=== PATIENT | male | born 1990 | race Caucasian/White ===

== ENCOUNTER 2017-05-09 15:41 | Emergency (ER) | payer MEDICARE, MEDICAID ==
[~2017-05-09] VITALS: Ht 180.3 cm; Wt 90.6 kg
[~2017-05-09 15:41] MED LIST: ALBU8.5H4 IH; ALBU8HFA PO; ARIP5TAB4 PO; BUPR150T8 PO; CLON-528 PO; CLON2TAB PO; CYCL-1 PO; DIAZ5TAB PO; DICL100G15 TOP; HYDR50CA PO; LEVA15HF4 IH; LIT300C PO; ONDA4TAB6 PO; ONDA8TAB9 PO; OXYC-145 PO; PARO-62 PO; PRAZ2CAP2 PO; PRAZ5CAP2 PO; PRED50TA PO; ZOF4T PO
[2017-05-09 15:53] VITALS: BP 141/101
[2017-05-09] MEDS ORDERED: ibuprofen tablet 400 MG TABLET PO ONE (16:20)
[2017-05-09] MEDS ORDERED: IBUP-1985 PO (16:20)
[2017-05-09] MEDS ORDERED: acetaminophen 325mg tablet PO ONE (16:25)
== END 2017-05-09 16:47 | disposition home or self-care (01) ==
LOC: ER 15:41
DX: S60.221A Contusion of right hand, initial encounter (principal); F12.10 Cannabis abuse, uncomplicated; I10 Essential (primary) hypertension; J45.909 Unspecified asthma, uncomplicated; G89.29 Other chronic pain; Z98.890 Other specified postprocedural states; Z79.899 Other long term (current) drug therapy; Z88.6 Allergy status to analgesic agent; Z88.5 Allergy status to narcotic agent; W22.8XXA Striking against or struck by other objects, initial encounter; Y93.89 Activity, other specified; Y92.89 Other specified places as the place of occurrence of the external cause; Y99.9 Unspecified external cause status
CPT/HCPCS: 29125; 73130; 99284

== ENCOUNTER 2017-07-21 22:13 | Emergency (ER) | payer MEDICARE, MEDICAID ==
[~2017-07-21] VITALS: Ht 177.8 cm; Wt 86.5 kg
[~2017-07-21 22:13] MED LIST changes: +IBUP-1985 PO
[2017-07-21] MEDS ORDERED: ondansetron 4mg rapidly disintigrating tab PO ONE (23:00)
[2017-07-21] MEDS ORDERED: dicyclomine 10 MG capsule PO ONE (23:00)
[2017-07-21 23:03] LABS: BASOPHILS % (AUTO) 0.3 % (0-1); EOSINOPHILS # (AUTO) 0.3 X10'3 (0-0.9); EOSINOPHILS % (AUTO) 2.4 % (0-6); HEMATOCRIT 46.4 % (42.0-52.0); HEMOGLOBIN 15.6 g/dl (14.0-17.9); LYMPHOCYTES # (AUTO) 4.5 X10'3 (1.1-4.8); LYMPHOCYTES % (AUTO) 40.2 % (21-51); MEAN CORPUSCULAR HEMOGLOBIN 30.1 PG (27.0-31.0); MEAN CORPUSCULAR HGB CONC 33.7 % (33.0-36.5); MEAN CORPUSCULAR VOLUME 89.3 FL (78-98); MEAN PLATELET VOLUME 8.2 FL (7.4-10.4); MONOCYTES # (AUTO) 0.6 X10'3 (0-0.9); MONOCYTES % (AUTO) 5.2 % (2-12); NEUTROPHILS # (AUTO) 5.9 X10'3 (1.8-7.7); NEUTROPHILS % (AUTO) 51.9 % (42-75); PLATELET COUNT 317 X10'3 (140-440); RED BLOOD COUNT 5.19 X10'6 (4.70-6.10); RED CELL DISTRIBUTION WIDTH 14.2 % (11.5-14.5); WHITE BLOOD COUNT 11.3 X10'3 (4.5-11.0)
[2017-07-21 23:14] LABS: INR 1.1 INR; PROTHROMBIN TIME 11.1 SECONDS (9.0-12.0)
[2017-07-21 23:17] LABS: ALANINE AMINOTRANSFERASE 31 U/L (12-78); ALBUMIN 4.5 G/DL (3.4-5.0); ALBUMIN/GLOBULIN RATIO 1.5 (1.1-1.5); ALKALINE PHOSPHATASE 63 IU/L (46-116); AMYLASE 34 U/L (25-115); ANION GAP 8 (8-16); ASPARTATE AMINO TRANSFERASE 19 U/L (10-37); BILIRUBIN,TOTAL 0.6 MG/DL (0.1-1.0); BLOOD UREA NITROGEN 12 MG/DL (7-18); BUN/CREATININE RATIO 10.6 (5.4-32.0); CALCIUM 9.2 MG/DL (8.5-10.1); CHLORIDE 105 MMOL/L (99-107); CREATININE 1.13 MG/DL (0.60-1.10); GLUCOSE 95 MG/DL (70-104); LIPASE 103 U/L (73-393); POTASSIUM 3.9 MMOL/L (3.5-5.1); SODIUM 144 MMOL/L (135-145); TOTAL CARBON DIOXIDE 30.8 MMOL/L (24-32); TOTAL PROTEIN 7.6 G/DL (6.4-8.2); eGFR 78 ML/MIN
[2017-07-21 23:42] LABS: CLARITY,URINE CLEAR (Clear); COLOR,URINE YELLOW (Yellow); GLUCOSE, URINE NEGATIVE (Neg); KETONES,URINE NEGATIVE (Neg); LEUKOCYTE ESTERASE ,URINE NEGATIVE (Neg); NITRITES, URINE NEGATIVE (Neg); OCCULT BLOOD,URINE NEGATIVE (Neg); PH,URINE 5.5 (4.8-8.0); PROTEIN,URINE TRACE mg/dl (Neg); UROBILINOGEN,URINE 0.2 E.U/dL (0.2-1.0)
[2017-07-21 23:46] LABS: UA COLLECTION TYPE CLN CATCH MIDSTREAM
[2017-07-21 23:48] LABS: BACTERIA,URINE NONE SEEN /HPF (Neg); CAL OXALATE CRYSTALS 4+ /HPF (NEGATIVE); MUCUS STRANDS MANY /LPF (Neg); RBC,URINE NONE SEEN /HPF (0-2); SQUAMOUS EPITHELIAL CELL,UR NONE SEEN /LPF (FEW); WBC,URINE NONE SEEN /HPF (0-4)
[2017-07-21] MEDS ORDERED: DICY20TA11 PO (23:54)
[2017-07-22 00:08] VITALS: BP 124/72
== END 2017-07-22 00:16 | disposition home or self-care (01) ==
LOC: ER 22:13
DX: R10.32 Left lower quadrant pain (principal); I10 Essential (primary) hypertension; J45.909 Unspecified asthma, uncomplicated; G89.29 Other chronic pain; F12.10 Cannabis abuse, uncomplicated; Z56.0 Unemployment, unspecified; Z79.899 Other long term (current) drug therapy
CPT/HCPCS: 36415; 80053; 81001; 82150; 83690; 85025; 85610; 85651; 99284

== ENCOUNTER 2018-07-27 08:44 | Emergency (ER) | payer MEDICARE, MEDICAID ==
[~2018-07-27] VITALS: Ht 180.3 cm; Wt 100.0 kg
[~2018-07-27 08:44] MED LIST changes: +DICY20TA11 PO
[2018-07-27 09:29] VITALS: BP 165/118
[2018-07-27] MEDS ORDERED: CYCL-1 PO (09:45)
== END 2018-07-27 10:03 | disposition home or self-care (01) ==
LOC: ER 08:44
DX: R25.2 Cramp and spasm (principal); M26.603 Bilateral temporomandibular joint disorder, unspecified; I10 Essential (primary) hypertension; J45.909 Unspecified asthma, uncomplicated; G89.29 Other chronic pain; F12.90 Cannabis use, unspecified, uncomplicated; F11.90 Opioid use, unspecified, uncomplicated; Z88.5 Allergy status to narcotic agent; Z88.6 Allergy status to analgesic agent; Z88.8 Allergy status to other drugs, medicaments and biological substances; Z79.899 Other long term (current) drug therapy; Z56.0 Unemployment, unspecified
CPT/HCPCS: 99283

== ENCOUNTER 2018-12-11 08:27 | Emergency (ER) | payer MEDICARE, MEDICAID ==
[~2018-12-11] VITALS: Ht 180.3 cm; Wt 104.5 kg
[2018-12-11] MEDS ORDERED: albuterol 2.5 MG/3 ML nebule NEB ONE (08:45)
[2018-12-11 09:19] VITALS: BP 145/79
[2018-12-11] MEDS ORDERED: ALBU8HFA PO (09:41)
[2018-12-11] MEDS ORDERED: INHA1EAC68 MC (09:41)
== END 2018-12-11 09:49 | disposition home or self-care (01) ==
LOC: ER 08:28
DX: J45.909 Unspecified asthma, uncomplicated (principal); R42 Dizziness and giddiness; I10 Essential (primary) hypertension; G89.29 Other chronic pain; F41.9 Anxiety disorder, unspecified; F32.9 Major depressive disorder, single episode, unspecified; F12.90 Cannabis use, unspecified, uncomplicated; F11.90 Opioid use, unspecified, uncomplicated; Z98.890 Other specified postprocedural states; Z56.0 Unemployment, unspecified; Z88.8 Allergy status to other drugs, medicaments and biological substances; Z79.899 Other long term (current) drug therapy
CPT/HCPCS: 94640; 94760; 99283

== ENCOUNTER 2019-01-24 04:59 | Emergency (ER) | payer MEDICARE, MEDICAID ==
[~2019-01-24] VITALS: Ht 180.3 cm; Wt 100.0 kg
[~2019-01-24 04:59] MED LIST changes: +INHA1EAC68 MC
[2019-01-24 05:03] VITALS: BP 170/84
[2019-01-24] MEDS ORDERED: predniSONE 20 mg tablet PO ONE (05:30)
[2019-01-24] MEDS ORDERED: PRED20TA PO ×2 (05:36→05:53)
[2019-01-24] MEDS ORDERED: ALBU18HF2 INH ×2 (05:49→05:53)
== END 2019-01-24 06:08 | disposition home or self-care (01) ==
LOC: ER 05:00
DX: J45.901 Unspecified asthma with (acute) exacerbation (principal); J02.9 Acute pharyngitis, unspecified; I10 Essential (primary) hypertension; G89.29 Other chronic pain; F41.9 Anxiety disorder, unspecified; F32.9 Major depressive disorder, single episode, unspecified; F12.90 Cannabis use, unspecified, uncomplicated; F11.90 Opioid use, unspecified, uncomplicated; F17.200 Nicotine dependence, unspecified, uncomplicated; Z79.899 Other long term (current) drug therapy; Z88.6 Allergy status to analgesic agent; Z88.8 Allergy status to other drugs, medicaments and biological substances; Z56.0 Unemployment, unspecified; Z86.69 Personal history of other diseases of the nervous system and sense organs
CPT/HCPCS: 99283; J7512

== ENCOUNTER 2023-08-12 09:17 | Outpatient (CLI) | payer MEDICARE, MEDICAID ==
[~2023-08-12 09:17] MED LIST changes: +ALBU18HF2 INH; +ARIP5TAB14 PO; -ARIP5TAB4 PO; -CLON-528 PO; +CLON-850 PO; +CLON-852 PO; -CLON2TAB PO; -DICY20TA11 PO; +DICY20TA2 PO; +PARO-141 PO; -PARO-62 PO
== END 2023-08-12 23:59 | disposition home or self-care (01) ==
LOC: RAD 09:17
PROVIDERS: ATTEND Nurse Practitioner Family
DX: M26.609 Unspecified temporomandibular joint disorder, unspecified side (principal)
CPT/HCPCS: 70100